=== PATIENT | female | born 1995 | race Two or more races ===

== ENCOUNTER → 2025-05-11 | Outpatient (CLI) | payer OTHER ==
[2025-05-11 11:34] LABS: PLATELET COUNT, AUTOMATED 250 10^3/uL (150-450)
[2025-05-11 12:32] LABS: HIV 1&2 SCREEN NEGATIVE (NEGATIVE)
[2025-05-11 12:41] LABS: HEPATITIS C VIRUS ABY INDEX < 0.02 INDEX (<0.8)
[2025-05-11 12:51] LABS: Trichomonas vaginalis (AMP) NOT DETECTED (NEGATIVE)
[2025-05-11 13:15] LABS: GC DNA AMPLIFICATION NEGATIVE (NEGATIVE)
== END ==
LOC: M PLALAB 08:11
PROVIDERS: ATTEND Nurse Practitioner Family
DX: Z34.80 Encounter for supervision of other normal pregnancy, unspecified trimester (principal)

== ENCOUNTER → 2025-05-11 | Outpatient (REF) | payer OTHER | LOC: M PLALAB 07:40 | PROVIDERS: ATTEND Nurse Practitioner Family | DX: Z53.9 Procedure and treatment not carried out, unspecified reason (principal); Z34.80 Encounter for supervision of other normal pregnancy, unspecified trimester ==

== ENCOUNTER → 2025-07-06 | Outpatient (CLI) | payer OTHER | LOC: M WHC 07:38 | PROVIDERS: ATTEND Nurse Practitioner Family | DX: Z34.02 Encounter for supervision of normal first pregnancy, second trimester (principal) ==

== ENCOUNTER → 2025-08-09 | Outpatient (CLI) | payer OTHER | LOC: M WHC 07:01 | PROVIDERS: ATTEND Nurse Practitioner Family | DX: Z34.82 Encounter for supervision of other normal pregnancy, second trimester (principal) ==

== ENCOUNTER → 2025-08-28 | Outpatient (CLI) | payer OTHER ==
[2025-08-28 15:07] LABS: PLATELET COUNT, AUTOMATED 287 10^3/uL (150-450)
[2025-08-28 15:16] LABS: Trichomonas vaginalis (AMP) NOT DETECTED (NEGATIVE)
[2025-08-28 15:34] LABS: GLUCOSE CHALLENGE TEST 1 HOUR 76 MG/DL (LESS THAN 140)
[2025-08-28 15:41] LABS: GC DNA AMPLIFICATION NEGATIVE (NEGATIVE)
== END ==
LOC: M PLALAB 08:29
PROVIDERS: ATTEND Nurse Practitioner Family
DX: Z34.82 Encounter for supervision of other normal pregnancy, second trimester (principal)